=== PATIENT | female | born 1990 | race Caucasian/White ===

== ENCOUNTER 2017-12-10 17:05 | Inpatient (IN) | payer BC, MEDICAID ==
[~2017-12-10] VITALS: Ht 160 cm; Wt 76.7 kg
[2017-12-10] MEDS ORDERED: NS(*) 0.9% 1000 ML BAG 1,000 ML IV ONE ×2 (17:20→19:00)
[2017-12-10] MEDS ORDERED: fentaNYL CITR 100 MCG/2 ML AMP IVP ONE (17:20)
[2017-12-10 17:39] LABS: PLATELET COUNT, AUTOMATED 258 K/uL (150-450)
[2017-12-10] MEDS ORDERED: GENTAMICIN IVPB ONE ×2 (17:40→17:55)
[2017-12-10] MEDS ORDERED: NS 0.9% IVPB ONE ×3 (17:40→19:00)
[2017-12-10] MEDS ORDERED: VANCOMYCIN 1 GM ADDVIAL 1 GM in NS(*) 0.9% 250 ML ADDVAN BAG 250 ML IVPB ONE (17:40)
--- NOTE | 2017-12-10 17:40 | EKG ---
FACILITY: [facility] PATIENT NAME: COLLETTE MENDOZA : [id number] MR: [id number] V: [id number] EXAM DATE: ORDERING PHYSICIAN: CIRILO MARINELLI TECHNOLOGIST: MARLO Wake[place] Reason : Blood Pressure : / mmHG Vent. Rate : 118 BPM Atrial Rate : 118 BPM P-R Int : 160 ms QRS Dur : 080 ms QT Int : 310 ms P-R-T Axes : 064 022 044 degrees QTc Int : 434 ms Sinus tachycardia Nonspecific T wave abnormality Abnormal ECG No previous ECGs available Confirmed by VIJAY LEONARD ([id number]) on 12/11/2017 11:14:57 AM Referred By: Confirmed By:VIJAY LEONARD
--- NOTE | 2017-12-10 17:47 | RADIOLOGY IMAGING REPORT ---
FACILITY: [facility] PATIENT NAME: Jazmín Benjamin : 1990 MR: [id number] V: [id number] EXAM DATE: ORDERING PHYSICIAN: MICHAEL TAYLOR TECHNOLOGIST: Location: [facility] - [place] Patient: Jazmín Benjamin : 1990 Visit/Account:[id number] Date of Sevice: 12/10/2017 EXAMINATION: CT HEAD WITHOUT CONTRAST COMPARISON: None available HISTORY: Headache. This. Fever. PROCEDURE: Noncontrast CT from the vertex through the skull base. One of the following dose optimizat ion techniques was utilized in the performance of this exam: Automated exposure control; adjustment o f the mA and/or kV according to the patient's size; or use of an iterative reconstruction technique. Specific details can be referenced in the facility's radiology CT exam operational policy. FINDINGS: Brain volume: Age-appropriate. Hemorrhage/extra-axial fluid: None. Mass effect/midline shift/edema: None. Ischemia: Brice-white differentiation is preserved. Ventricles and basal cisterns: Within normal limits. Posterior fossa: Negative. Vessels: Negative. Calvarium, skull base, and scalp: Negative. Visualized sinuses and orbits: Within normal limits. IMPRESSION: Negative age-appropriate noncontrast head CT. Report Dictated By: Scott Mata MD at 12/10/2017 5:41 PM Report E-Signed By: Scott Mata MD at 12/10/2017 5:43 PM WSN:[id number]
[2017-12-10] MEDS ORDERED: ACYCLOVIR IVPB SCH ×2 (18:15→21:00)
[2017-12-10] MEDS ORDERED: NS 0.9% IVPB SCH ×2 (18:15→21:00)
[2017-12-10] MEDS ORDERED: VANCOMYCIN IVPB ONE (19:00)
--- NOTE | 2017-12-10 19:33 | ER Report ---
History and Physical Time Seen By MD: 17:23 Hx. of Stated Complaint: EMS CALLED BY FATHER. Pt reports headache and malaise since last night. Father called ems bc patient was lethargic and febrile. Reported high fever. Last tylenol at 1400. HPI/ROS CHIEF COMPLAINT: Headache, fever, neck pain HISTORY OF PRESENT ILLNESS: 27-year-old female patient presents to emergency room with complaint of headache, fever and neck pain. Patient states this started yesterday. Patient states that she did not start having fevers until last night. She states that fevers have persisted throughout the day. Patient states she's having significant amount of pain. She states she has difficulty turning her head. She denies having any nausea, vomiting or diarrhea, she denies having any chest pain. Patient has taken Tylenol for her fever. The last she had was approximately 2:00 this afternoon. Patient states she's having significant photophobia, headache. She has a hard time keeping her eyes open because the light makes her head hurt more. REVIEW OF SYSTEMS: Respiratory: No cough, no dyspnea. Cardiovascular: No chest pain, no palpitations. Gastrointestinal: No vomiting, no abdominal pain. Musculoskeletal: No back pain. Allergies: Coded Allergies: No Known Drug Allergies (Verified , 02/25/08) Home Meds Reported Medications [None] No Conflict Check 02/25/08 Past Medical/Surgical History Patient denies any pertinent medical history. Reviewed Nurses Notes: Yes Constitutional Vital Sign - Last 24 Hours 12/10/17 12/10/17 12/10/17 12/10/17 17:05 17:08 17:11 17:20 Temp 100.4 Pulse ??? 126 ??? Resp 16 B/P (MAP) 131/88 (102) 131/88 Pulse Ox 96 O2 Delivery Room Air 12/10/17 12/10/17 12/10/17 12/10/17 17:24 17:35 17:40 17:50 Pulse 118 135 Resp 0 B/P (MAP) 119/82 (94) 126/86 (99) Pulse Ox 97 95 12/10/17 12/10/17 12/10/17 12/10/17 18:00 18:05 18:20 18:35 Pulse 103 114 113 Resp 9 21 B/P (MAP) 100/69 (79) 106/78 (87) Pulse Ox 94 92 12/10/17 12/10/17 12/10/17 12/10/17 18:40 18:50 19:00 19:05 Pulse 118 122 Resp 24 22 B/P (MAP) 122/80 (94) 119/81 (94) Pulse Ox 94 94 12/10/17 12/10/17 12/10/17 12/10/17 19:20 19:35 19:45 19:50 Pulse 114 ??? 109 Resp 20 18 B/P (MAP) 112/76 (88) 123/93 (103) Pulse Ox 94 95 12/10/17 12/10/17 12/10/17 20:00 20:05 20:20 Pulse 113 112 Resp 21 24 B/P (MAP) 125/97 (106) 119/93 (102) Pulse Ox 95 94 Intake and Output 12/10/17 12/10/17 12/11/17 15:00 23:00 07:00 Intake Total 1100 ml Output Total 100 ml Balance 1000 ml Physical Exam General Appearance: The patient is alert, has no immediate need for airway protection and no current signs of toxicity. Patient is warm to the touch. Eyes: Pupils equal and round no injection. Patient has difficult time keeping her eyes open. Respiratory: Chest is non tender, lungs are clear to auscultation. Cardiac: regular rate and rhythm Gastrointestinal: Abdomen is soft and non tender, no masses, bowel sounds normal. Musculoskeletal: Neck: Patient has tenderness to the left side of her neck, she has worsening pain with movement. Patient had a positive Kernig and Brudzinski sign. Extremities have full range of motion and are non tender. Skin: No rashes or lesions. DIFFERENTIAL DIAGNOSIS: After history and physical exam differential diagnosis was considered for meningitis, viral meningitis, upper respiratory infection, mono, influenza. Medical Decision Making Data Points Result Diagram: 12/10/17 1726 12/10/17 1726 Laboratory Hematology Test 12/10/17 17:26 12/10/17 17:58 12/10/17 18:30 12/10/17 18:47 Red Blood Count 4.98 M/uL (4.17-5.56) Mean Corpuscular Volume 83.4 fL (80.0-96.0) Mean Corpuscular Hemoglobin 28.6 pg (26.0-33.0) Mean Corpuscular Hemoglobin Concent 34.2 g/dL (32.0-36.0) Red Cell Distribution Width 14.3 % (11.5-14.5) Mean Platelet Volume 8.0 fL (7.2-11.1) Neutrophils (%) (Auto) 88.1 % (39.4-72.5) Lymphocytes (%) (Auto) 5.8 % (17.6-49.6) Monocytes (%) (Auto) 5.4 % (4.1-12.4) Eosinophils (%) (Auto) 0.2 % (0.4-6.7) Basophils (%) (Auto) 0.5 % (0.3-1.4) Nucleated RBC Relative Count (auto) 0.0 /100WBC Neutrophils # (Auto) 14.7 K/uL (2.0-7.4) Lymphocytes # (Auto) 1.0 K/uL (1.3-3.6) Monocytes # (Auto) 0.9 K/uL (0.3-1.0) Eosinophils # (Auto) 0.0 K/uL (0.0-0.5) Basophils # (Auto) 0.1 K/uL (0.0-0.1) Nucleated RBC Absolute Count (auto) 0.00 K/uL Sodium Level 138 mmol/L (137-145) Potassium Level 3.7 mmol/L (3.5-5.0) Chloride Level 104 mmol/L (98-107) Carbon Dioxide Level 23 mmol/L (22-31) Blood Urea Nitrogen 9 mg/dl (7-18) Creatinine 0.90 mg/dl (0.52-1.04) Glomerular Filtration Rate Calc > 60.0 Random Glucose 103 mg/dl (75-110) Lactate 1.0 mmol/L (0.7-2.1) Calcium Level 8.7 mg/dl (8.4-10.2) Total Bilirubin 0.6 mg/dl (0.2-1.3) Aspartate Amino Transf (AST/SGOT) 23 U/L (0-35) Alanine Aminotransferase (ALT/SGPT) 20 U/L (0-56) Alkaline Phosphatase 86 U/L (0-126) Total Protein 5.8 g/dl (6.3-8.2) Albumin 3.3 g/dl (3.5-5.0) Monoscreen Negative (NEGATIVE) Influenza Virus Type A (PCR) Negative (NEGATIVE) Influenza Virus Type B (PCR) Negative (NEGATIVE) Haemophilus influenzae B Antigen Negative (NEGATIVE) Neisseria meningitidis A/Y Antigen Negative (NEGATIVE) Neisseria meningitidis C/W135 Ag Negative (NEGATIVE) N. meningitidis B/E.coli K1 Ag Negative (NEGATIVE) Group B Streptococcus Antigen Negative (NEGATIVE) Streptococcus pneumoniae Antigen Negative (NEGATIVE) CSF Appearance Clear (CLEAR) CSF Color Colorless (COLORLESS) CSF WBC 1 /mm3 (0-5) CSF RBC 118 /mm3 CSF Glucose 56 mg/dl CSF Lactate Dehydrogenase 169 U/L CSF Total Protein 29 mg/dl (15-50) Urine Color Straw Urine Clarity Clear Urine pH 8.0 pH (4.8-9.5) Urine Specific Wilkinson 1.006 Urine Protein Negative mg/dL (NEGATIVE) Urine Glucose (UA) Negative mg/dL (NEGATIVE) Urine Ketones 20 mg/dL (NEGATIVE) Urine Blood Negative (NEGATIVE) Urine Nitrite Negative (NEGATIVE) Urine Bilirubin Negative (NEGATIVE) Urine Urobilinogen Negative mg/dL (0.2-1.9) Urine Leukocyte Esterase Negative (NEGATIVE) Urine RBC None /HPF (0-2/HPF) Urine WBC 1 /HPF (0-5/HPF) Urine Squamous Epithelial Cells Few /LPF (NONE-FEW) Urine Bacteria Negative /HPF (NONE-FEW) Urine Mucus None /HPF (NONE-FEW) Chemistry Test 12/10/17 17:26 12/10/17 17:58 12/10/17 18:30 12/10/17 18:47 White Blood Count 16.6 k/uL (4.5-11.0) Red Blood Count 4.98 M/uL (4.17-5.56) Hemoglobin 14.2 g/dL (12.0-16.0) Hematocrit 41.5 % (34.0-47.0) Mean Corpuscular Volume 83.4 fL (80.0-96.0) Mean Corpuscular Hemoglobin 28.6 pg (26.0-33.0) Mean Corpuscular Hemoglobin Concent 34.2 g/dL (32.0-36.0) Red Cell Distribution Width 14.3 % (11.5-14.5) Platelet Count 258 K/uL (150-450) Mean Platelet Volume 8.0 fL (7.2-11.1) Neutrophils (%) (Auto) 88.1 % (39.4-72.5) Lymphocytes (%) (Auto) 5.8 % (17.6-49.6) Monocytes (%) (Auto) 5.4 % (4.1-12.4) Eosinophils (%) (Auto) 0.2 % (0.4-6.7) Basophils (%) (Auto) 0.5 % (0.3-1.4) Nucleated RBC Relative Count (auto) 0.0 /100WBC Neutrophils # (Auto) 14.7 K/uL (2.0-7.4) Lymphocytes # (Auto) 1.0 K/uL (1.3-3.6) Monocytes # (Auto) 0.9 K/uL (0.3-1.0) Eosinophils # (Auto) 0.0 K/uL (0.0-0.5) Basophils # (Auto) 0.1 K/uL (0.0-0.1) Nucleated RBC Absolute Count (auto) 0.00 K/uL Glomerular Filtration Rate Calc > 60.0 Lactate 1.0 mmol/L (0.7-2.1) Calcium Level 8.7 mg/dl (8.4-10.2) Total Bilirubin 0.6 mg/dl (0.2-1.3) Aspartate Amino Transf (AST/SGOT) 23 U/L (0-35) Alanine Aminotransferase (ALT/SGPT) 20 U/L (0-56) Alkaline Phosphatase 86 U/L (0-126) Total Protein 5.8 g/dl (6.3-8.2) Albumin 3.3 g/dl (3.5-5.0) Monoscreen Negative (NEGATIVE) Influenza Virus Type A (PCR) Negative (NEGATIVE) Influenza Virus Type B (PCR) Negative (NEGATIVE) Haemophilus influenzae B Antigen Negative (NEGATIVE) Neisseria meningitidis A/Y Antigen Negative (NEGATIVE) Neisseria meningitidis C/W135 Ag Negative (NEGATIVE) N. meningitidis B/E.coli K1 Ag Negative (NEGATIVE) Group B Streptococcus Antigen Negative (NEGATIVE) Streptococcus pneumoniae Antigen Negative (NEGATIVE) CSF Appearance Clear (CLEAR) CSF Color Colorless (COLORLESS) CSF WBC 1 /mm3 (0-5) CSF RBC 118 /mm3 CSF Glucose 56 mg/dl CSF Lactate Dehydrogenase 169 U/L CSF Total Protein 29 mg/dl (15-50) Urine Color Straw Urine Clarity Clear Urine pH 8.0 pH (4.8-9.5) Urine Specific Wilkinson 1.006 Urine Protein Negative mg/dL (NEGATIVE) Urine Glucose (UA) Negative mg/dL (NEGATIVE) Urine Ketones 20 mg/dL (NEGATIVE) Urine Blood Negative (NEGATIVE) Urine Nitrite Negative (NEGATIVE) Urine Bilirubin Negative (NEGATIVE) Urine Urobilinogen Negative mg/dL (0.2-1.9) Urine Leukocyte Esterase Negative (NEGATIVE) Urine RBC None /HPF (0-2/HPF) Urine WBC 1 /HPF (0-5/HPF) Urine Squamous Epithelial Cells Few /LPF (NONE-FEW) Urine Bacteria Negative /HPF (NONE-FEW) Urine Mucus None /HPF (NONE-FEW) Urinalysis Test 12/10/17 18:47 Urine Color Straw Urine Clarity Clear Urine pH 8.0 pH (4.8-9.5) Urine Specific Wilkinson 1.006 Urine Protein Negative mg/dL (NEGATIVE) Urine Glucose (UA) Negative mg/dL (NEGATIVE) Urine Ketones 20 mg/dL (NEGATIVE) Urine Blood Negative (NEGATIVE) Urine Nitrite Negative (NEGATIVE) Urine Bilirubin Negative (NEGATIVE) Urine Urobilinogen Negative mg/dL (0.2-1.9) Urine Leukocyte Esterase Negative (NEGATIVE) Urine RBC None /HPF (0-2/HPF) Urine WBC 1 /HPF (0-5/HPF) Urine Squamous Epithelial Cells Few /LPF (NONE-FEW) Urine Bacteria Negative /HPF (NONE-FEW) Urine Mucus None /HPF (NONE-FEW) Microbiology Microbiology Date/Time Source Procedure Growth Status 12/10/17 17:58 Cerebrospinal Fluid Gram Stain - Final Resulted 12/10/17 17:58 Cerebrospinal Fluid CSF Culture Pending Resulted EKG/Imaging EKG Interpretation 12 lead EKG: Rhythm: Sinus tachycardia with a ventricular rate of 118 beats for minute [place]: normal QRS: normal ST segments: normal Imaging EXAMINATION: CT HEAD WITHOUT CONTRAST COMPARISON: None available HISTORY: Headache. This. Fever. PROCEDURE: Noncontrast CT from the vertex through the skull base. One of the following dose optimization techniques was utilized in the performance of this exam: Automated exposure control; adjustment of the mA and/or kV according to the patient's size; or use of an iterative reconstruction technique. Specific details can be referenced in the facility's radiology CT exam operational policy. FINDINGS: Brain volume: Age-appropriate. Hemorrhage/extra-axial fluid: None. Mass effect/midline shift/edema: None. Ischemia: Brice-white differentiation is preserved. Ventricles and basal cisterns: Within normal limits. Posterior fossa: Negative. Vessels: Negative. Calvarium, skull base, and scalp: Negative. Visualized sinuses and orbits: Within normal limits. IMPRESSION: Negative age-appropriate noncontrast head CT. Report Dictated By: Scott Mata MD at 12/10/2017 5:41 PM Report E-Signed By: Scott Mata MD at 12/10/2017 5:43 PM ED Course/Re-evaluation ED Course Patient was admitted to examined, history and physical were obtained. Differential diagnoses were considered. On examination lungs are clear, heart was regular, abdomen soft nontender. Patient did have tenderness to the neck. Patient has pain with flexion, extension and turning her head. Patient also has a headache. Patient was febrile at 100.4 here in the emergency room. A CBC, CMP , EKG, lactate, chest x-ray, CT scan of the head and lumbar puncture were done. Lactate was one. CBC showed an elevated white count of 16,000 with a left shift. CMP was unremarkable except for a low albumin and protein. EKG showed a sinus tachycardia. CT scan of the head was done which was negative. Following the CT scan of the head and lumbar puncture was done. Irritable to get proximally 4 cc of fluid out, it was clear although I did have a traumatic tap which resulted in blood in the first vial. A culture and Gram stain was done. A bacterial antigens was done which was negative. Influenza was done which was also negative. Monospot was done which was negative. Patient had 218 red blood cells per high-power field in her CSF. 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 We did go ahead and treat her with vancomycin, gentamicin and acyclovir. I discussed case with Dr. Weems who agreed to accept the patient for admission. He also requested that Rocephin be given. Rocephin was given. A catheter was placed, urinalysis obtained which was also unremarkable. I discussed findings with patient and the family and they verbalized understanding and agreement with plan. Procedure: Lumbar puncture. Indication: Headache. After verbal informed consent from patient explaining the risks including infection, bleeding, and neurologic damage, a lumbar puncture was performed after the patient was prepped and draped in the usual fashion. The back was anesthetized with 1% lidocaine. Approximately 4 cc of clear fluid was obtained. Opening pressure was not obtained. There were no complications. The procedure was performed by myself under the direct supervision of Dr. Benjamin. Decision to Disposition Date: Dec 10, 2017 Decision to Disposition Time: 20:21 Depart Departure Latest Vital Signs Vital Signs Date Time Temp Pulse Resp B/P (MAP) Pulse Ox O2 Delivery O2 Flow Rate FiO2 12/10/17 20:20 112 24 119/93 (102) 94 12/10/17 17:11 100.4 Room Air Impression: Primary Impression: Meningitis Condition: Improved Disposition: Admitted from ER Referrals: [facility] RD[facility] Departure Forms: Medications Reconciliation, Patient Portal Information, ER Transition Record CIRILO MARINELLI Dec 10, 2017 19:33
--- NOTE | 2017-12-10 19:58 | RADIOLOGY IMAGING REPORT ---
FACILITY: [facility] PATIENT NAME: Jazmín Benjamin : 1990 MR: [id number] V: [id number] EXAM DATE: ORDERING PHYSICIAN: CIRILO MARINELLI [place]CHN[place] [facility] [place]azmín Benjamin : 1990 Visit/Account:[id number] Date of Sevice: 12/10/2017 EXAMINATION: Chest 2 Views HISTORY: Fever. COMPARISON: None. FINDINGS: The lungs are clear. No focal consolidation or pleural fluid. No pneumothorax. Normal cardiomedias tinal silhouette, with normal heart size and pulmonary vascularity. Visualized osseous structures ar e unremarkable. IMPRESSION: Negative chest. Report Dictated By: Paul Edwards MD at 12/10/2017 7:54 PM Report E-Signed By: Paul Edwards MD at 12/10/2017 7:54 PM WSN:[id number]
[2017-12-10] MEDS ORDERED: cefTRIAXone(*) 2 GM VIAL 2 GM in NS(*) 0.9% 100 ML ADDVANT BAG 100 ML IVPB ONE (20:10)
[2017-12-10] MEDS ORDERED: DEXAMETHASONE SOD 20MG/5 ML VL IVP ONE (20:55)
[2017-12-10 21:11] VITALS: BP 114/80
--- NOTE | 2017-12-10 21:21 | History & Physical ---
History of Present Illness Chief Complaint Headache, fever, neck pain History of Present Illness Mrs. Benjamin is a 27-year-old female with PMH of Allergic Rhinitis who presented to the emergency room with complaint of headache, fever and neck pain. The headache started yesterday and she developed fever last night that persisted till today. She still c/o headache and neck pain with neck stiffness and photophobia. She denied having any nausea, vomiting or diarrhea or chest pain. She took some Tylenol for her fever. During the ER evaluation she found to have high WBC, fever 100.4F and tachycardia. She also found to have neck stiffness and positive Kernig and Brudzinski signs by the ER. Spinal tap was performed by the ER-MD with >100 RBC , 1 WBC, Protein 28 and Glucose 56., Gram stain is pending. Blood CX and viral tests were sent. Her CT scan of the head was negative. CXR was also negative. She received Rocephin 2gm, Gentamicin, Acyclovir 680mg and Vancomycin 1.75gm IVPB in the ER. I discussed the case with the ER-MD and admitted the patient to the medical floor for further evaluation and management. I discussed the case with her family members and explained the current condition to them and as well to the patient and they understood. The patient mentioned that she recently had cough and L-ear pain and she took Advil for that and pain went away but her headache persisted. Her young girl also had high fever and sore throat recently and she was positive for strept. She is AAOx3 at present and hemodynamically stable with mild sinus tachycardia. History Home Meds Reported Medications [None] No Conflict Check 02/25/08 Allergies: Coded Allergies: No Known Drug Allergies (Verified , 02/25/08) Review of Systems Constitutional: Fever, Chills, No Weight Loss, No Weight Gain Neurological: No Confusion, No Weakness, No Dizziness Eyes: Photophobia ENT: Sinus Congestion, Ear Ache Cardiovascular: No Chest Pain, No Palpitations Respiratory: No Shortness of Breath, No Cough Gastrointestinal: No Nausea, No Vomiting, No Diarrhea, No Constipation, No Abdominal Pain Genitourinary: No Dysuria, No Hematuria Musculoskeletal: No Pain, No Sprain, No Strain Psychiatric: No Depression, No Anxiety Exam Vital Signs Vital Signs Date Time Temp Pulse Resp B/P (MAP) Pulse Ox O2 Delivery O2 Flow Rate FiO2 12/10/17 21:11 100.7 114 20 114/80 (91) 95 Room Air General Appearance: Alert, Awake, No Acute Distress, Afebrile (low grade fever) Neuro: No Gross deficits Eyes: PERRLA (photophobia) ENT: Normal, Moist Mucous Membranes, Tonsils Normal Neck: No Masses, Other (neck stiffness) Cardiovascular: No Edema, Other (sinus tachycardia) Respiratory: No Respiratory Distress, Clear to Auscultation Chest: No Masses GI: Abd Soft and Non-Tender : Normal Musculoskeletal: No Weakness/Pain Extremities: Soft and Non Tender, Warm, Pulses Integumentary: Skin Intact without Lesion / Mass Psych: Alert & Oriented X3, Appropriate Mood & Affect Medical Decision Making Data Points Result Diagram: 12/10/17 17212/10/171725 reviewed pending EKG / Imaging Monitor Interpretation: Sinus Tachycardia Pre-Admit Course ED Medications Rocephin, Gentamicin, Acyclovir and Vancomycin, Fentanyl for pain Medical Record Review: Yes Assessment and Plan Problems: (1) Meningitis Status: Acute Assessment & Plan: Acute Meningitis, Viral vs Bacterial I will admit her to medical floor for further evaluation and management I will check her neuro status q 4h I will start Rocephin 2 gm IV q 12h I will start Vancomycin 1.5gm IV q 12h I will check Vanco trough before 3rd dose I will start Acyclovir 10mg/kg, 680mg IV q 8h I will start Dexamethasone 0.15mg/kg, 10mg IV q 6h for 4 days I will start Zofran for Nausea I will start Protonix for GIP I will place SCD's for DVTP I will get CBC and BMP in am I will follow her Culture results and direct management accordingly. Central Venous Access Medical Necessity for Access: IV Access, Medication Administration Time Spent on Plan of Care: > 30 min Copies to: VIKRAM TERAN DO Venous Thromboembolism VTE Risk Physician Assess for VTE Risk: Yes Patient's VTE Risk: Low VTE Diagnostic Test 2 Days Prior to Admit: No Antithrombotics Is Pt On Any Antithrombotics?: No Exam Sepsis Risk: Possible Severe Sepsis Risk PRASANTH RICHEY MD Dec 10, 2017 21:20
[2017-12-10] MEDS ORDERED: NS(*) 0.9% 1000 ML BAG 1,000 ML IV PRN (21:40)
[2017-12-10] MEDS ORDERED: ONDANSETRON 4 MG/2 ML VIAL IVP PRN (21:40)
[2017-12-10] MEDS ORDERED: ACETAMINOPHEN 325 MG TAB PO PRN (21:40)
[2017-12-10] MEDS ORDERED: NORG1TAB74 PO (21:59)
[2017-12-10] MEDS ORDERED: MORPHINE 2 MG/ML SYR IVP PRN (22:25)
[2017-12-11 00:17] VITALS: BP 109/63
[2017-12-11] MEDS ORDERED: NS(*) 0.9% 250 ML BAG 250 ML ONE (00:51)
[2017-12-11] MEDS ORDERED: NS(*) 0.9% 1000 ML BAG 1,000 ML IV PRN (01:04)
[2017-12-11] MEDS ORDERED: ONDANSETRON 4 MG/2 ML VIAL IVP PRN (01:05)
[2017-12-11 03:31] VITALS: BP 99/64
[2017-12-11] MEDS: ACETAMINOPHEN 325 MG TAB PO PRN ×2 (03:43→12:44)
[2017-12-11] MEDS ORDERED: DEXAMETHASONE SOD(*) 10MG/ML 10 MG in NS(*) 0.9% 50 ML BAG 50 ML IVPB SCH ×4 (04:00→10:00)
[2017-12-11] MEDS ORDERED: ACYCLOVIR IVPB SCH (05:00)
[2017-12-11] MEDS ORDERED: NS 0.9% IVPB SCH (05:00)
[2017-12-11 06:28] LABS: PLATELET COUNT, AUTOMATED 248 K/uL (150-450)
[2017-12-11] MEDS ORDERED: [UNRECOGNIZED DRUG - OTHER] IVPB SCH (07:00)
[2017-12-11] MEDS ORDERED: VANCOMYCIN IVPB SCH (07:00)
[2017-12-11] MEDS ORDERED: VANCOMYCIN(*) 1 GM VIAL 1 GM, VANCOMYCIN (*) 0.5 GM VIAL 0.5 GM in NS(*) 0.9% 250 ML BA... IVPB SCH (07:00)
[2017-12-11] MEDS ORDERED: D5W IVPB SCH ×2 (08:00)
[2017-12-11] MEDS ORDERED: CEFTRIAXONE IVPB SCH ×2 (08:00)
[2017-12-11] MEDS: cefTRIAXone(*) 2 GM VIAL 2 GM in NS(*) 0.9% 100 ML ADDVANT BAG 100 ML IVPB SCH ×2 (08:43→19:25)
[2017-12-11 08:45] VITALS: BP 106/68
[2017-12-11] MEDS ORDERED: HYPROMELLOSE 0.4% LUB 15ML BTL OU PRN (09:00)
[2017-12-11] MEDS ORDERED: PANTOPRAZOLE SOD 40 MG TABEC PO SCH (09:00)
[2017-12-11] MEDS: PANTOPRAZOLE SOD 40 MG TABEC PO SCH (09:30)
--- NOTE | 2017-12-11 10:14 | Hospitalist Progress Note ---
Subjective Progress Notes Subjective Overall feeling better. Still having neck pain and headache. Physical Exam Vital Signs Date Time Temp Pulse Resp B/P (MAP) Pulse Ox O2 Delivery O2 Flow Rate FiO2 12/11/17 08:45 98.1 91 16 106/68 (81) 93 Blow-by General Appearance: Alert, Awake, No Acute Distress ENT: Other (Scabbed 1cm lesion above chin and about 1cm below lip near midline on left. ) Neck: Other (Still with pain with neck flexion on left side of neck. Able to straighten the leg when hip flexed at 90 degrees) Result Diagram: 12/11/17 0547 12/10/17 0756 Monitor Interpretation: Sinus Tachycardia Assessment and Plan Problems: (1) Meningitis Status: Acute Assessment & Plan: She presented with 24 hours of headache, fever, neck pain and malaise. No bacteria on gram stain, antigen testing negative, 1 wbc in CSF , protein normal in CSF, and glucose is a bit low (low ratio of CSF glucose/ serum glucose). Likely, a viral meningitis. She developed a "cold sore" about a week ago below her bottom lip. She has had before, but this one is really severe for her. Continue vancomycin, ceftriaxone and dexamethasone for now until the CSF cultures are reported. Continue acyclovir. HSV PCR pending. The patient denies any tick exposures, but has had mosquito bites.West Nile testing has been ordered. Central Venous Access Medical Necessity for Access: IV Access, Medication Administration Exam Sepsis Risk: Sepsis Risk VIJAY LEONARD MD Dec 11, 2017 10:14
[2017-12-11 10:56] VITALS: BP 108/71
[2017-12-11] MEDS: NS 0.9% IVPB SCH ×2 (12:32→22:11)
[2017-12-11] MEDS: ACYCLOVIR IVPB SCH ×2 (12:32→22:11)
[2017-12-11 13:37] VITALS: Ht 160 cm; Wt 76.7 kg
[2017-12-11] MEDS: DEXAMETHASONE SOD(*) 10MG/ML 10 MG in NS(*) 0.9% 50 ML BAG 50 ML IVPB SCH ×2 (16:26→23:39)
[2017-12-11 19:21] VITALS: BP 118/79
[2017-12-11] MEDS: VANCOMYCIN(*) 1 GM VIAL 2 GM in NS(*) 0.9% 250 ML BAG 250 ML IVPB SCH (20:08)
[2017-12-12 04:03] VITALS: BP 96/58
[2017-12-12] MEDS: DEXAMETHASONE SOD(*) 10MG/ML 10 MG in NS(*) 0.9% 50 ML BAG 50 ML IVPB SCH (04:04)
[2017-12-12] MEDS: NS 0.9% IVPB SCH ×3 (04:35→21:00)
[2017-12-12] MEDS: ACYCLOVIR IVPB SCH ×3 (04:35→21:00)
[2017-12-12] MEDS: VANCOMYCIN(*) 1 GM VIAL 2 GM in NS(*) 0.9% 250 ML BAG 250 ML IVPB SCH (06:22)
[2017-12-12 07:38] LABS: PLATELET COUNT, AUTOMATED 272 K/uL (150-450)
[2017-12-12 07:59] VITALS: BP 116/79
[2017-12-12] MEDS: PANTOPRAZOLE SOD 40 MG TABEC PO SCH (08:33)
[2017-12-12] MEDS: cefTRIAXone(*) 2 GM VIAL 2 GM in NS(*) 0.9% 100 ML ADDVANT BAG 100 ML IVPB SCH ×2 (08:33→19:58)
[2017-12-12 12:03] VITALS: BP 127/78
[2017-12-12] MEDS: DEXAMETHASONE SOD 4 MG/ML VIAL IVP SCH ×2 (12:26→19:58)
[2017-12-12 14:49] VITALS: BP 117/77
[2017-12-12 19:30] VITALS: BP 126/89
--- NOTE | 2017-12-12 19:54 | Hospitalist Progress Note ---
Subjective Progress Notes Subjective 12/10: Mrs. Benjamin is a 27-year-old female with PMH of Allergic Rhinitis who presented to the emergency room with complaint of headache, fever and neck pain. The headache started yesterday and she developed fever last night that persisted till today. She still c/o headache and neck pain with neck stiffness and photophobia. She denied having any nausea, vomiting or diarrhea or chest pain. She took some Tylenol for her fever. During the ER evaluation she found to have high WBC, fever 100.4F and tachycardia. She also found to have neck stiffness and positive Kernig and Brudzinski signs by the ER. Spinal tap was performed by the ER-MD with >100 RBC , 1 WBC, Protein 28 and Glucose 56., Gram stain is pending. Blood CX and viral tests were sent. Her CT scan of the head was negative. CXR was also negative. She received Rocephin 2gm, Gentamicin, Acyclovir 680mg and Vancomycin 1.75gm IVPB in the ER. I discussed the case with the ER-MD and admitted the patient to the medical floor for further evaluation and management. I discussed the case with her family members and explained the current condition to them and as well to the patient and they understood. The patient mentioned that she recently had cough and L-ear pain and she took Advil for that and pain went away but her headache persisted. Her young girl also had high fever and sore throat recently and she was positive for strept. She is AAOx3 at present and hemodynamically stable with mild sinus tachycardia. 12/12: Today patient is doing well without any significant complaint. She is afebrile and hemodynamically stable. Her CSF bacterial studies are negative, Influenza, [place] are negative, Herpes is still pending. Her BCX are negative. She c/o mild L -lateral aspect of knee. Patient Complains of: Neurological: No: Confusion, Weakness, Dizziness Cardiovascular: No: Chest Pain, Palpitations Respiratory: No: Cough, Congestion, Shortness of Breath Gastrointestinal: No Nausea, No Vomiting Genitourinary: No Dysuria, No Hematuria Musculoskeletal: No: Pain, Sprain, Strain Physical Exam Vital Signs Date Time Temp Pulse Resp B/P (MAP) Pulse Ox O2 Delivery O2 Flow Rate FiO2 12/12/17 19:30 98.7 77 16 126/89 (101) 94 Room Air Intake and Output 12/13/17 07:00 Intake Total 823 ml Balance 823 ml Intake Oral 342 ml IV Total 481 ml # Voids 1 General Appearance: Alert, Awake, No Acute Distress, Afebrile Neuro: No Gross deficits Eyes: PERRLA ENT: Normal Neck: No Masses Cardiovascular: No Edema, Other (sinus tachycardia) Respiratory: No Respiratory Distress GI: Soft and Non-Tender Musculoskeletal: No Weakness/Pain Extremities: Soft and Non Tender, Pulses, Other (L-knee tenderness) Integumentary: Other (perioral skin lesions) Psych: Alert & Oriented X3, Appropriate Mood & Affect Result Diagram: 12/12/17 0731 12/12/17 07 Monitor Interpretation: Sinus Tachycardia Assessment and Plan Problems: (1) Meningitis Status: Acute Assessment & Plan: 12/11: She presented with 24 hours of headache, fever, neck pain and malaise. No bacteria on gram stain, antigen testing negative, 1 wbc in CSF, protein normal in CSF, and glucose is a bit low (low ratio of CSF glucose/serum glucose). Likely, a viral meningitis. She developed a "cold sore" about a week ago below her bottom lip. She has had before, but this one is really severe for her. Continue vancomycin, ceftriaxone and dexamethasone for now until the CSF cultures are reported. Continue acyclovir. HSV PCR pending. The patient denies any tick exposures, but has had mosquito bites.West Nile testing has been ordered. 12/12: I will stop her Vancomycin, I will decrease her Dexamethasone to 4mg IV q8h I will continue her Acyclovir and Rocephin today. I will get BMP and CBC in am I will check her Herpes result Central Venous Access Medical Necessity for Access: IV Access, Medication Administration Time Spent on Plan of Care: < 30 min Exam Sepsis Risk: Sepsis Risk PRASANTH RICHEY MD Dec 12, 2017 19:54
[2017-12-13 04:18] VITALS: BP 125/84
[2017-12-13] MEDS: DEXAMETHASONE SOD 4 MG/ML VIAL IVP SCH ×2 (04:19→12:23)
[2017-12-13] MEDS: NS 0.9% IVPB SCH ×3 (04:20→20:52)
[2017-12-13] MEDS: ACYCLOVIR IVPB SCH ×3 (04:20→20:52)
[2017-12-13 06:06] LABS: PLATELET COUNT, AUTOMATED 267 K/uL (150-450)
[2017-12-13 07:43] VITALS: BP 128/84
[2017-12-13] MEDS: cefTRIAXone(*) 2 GM VIAL 2 GM in NS(*) 0.9% 100 ML ADDVANT BAG 100 ML IVPB SCH ×2 (07:45→19:42)
[2017-12-13] MEDS: PANTOPRAZOLE SOD 40 MG TABEC PO SCH (09:21)
--- NOTE | 2017-12-13 14:16 | Hospitalist Progress Note ---
Subjective Progress Notes Subjective Mrs. Benjamin is a 27-year-old female with PMH of Allergic Rhinitis who presented to the emergency room with complaint of headache, fever and neck pain. The headache started yesterday and she developed fever last night that persisted till today. She still c/o headache and neck pain with neck stiffness and photophobia. She denied having any nausea, vomiting or diarrhea or chest pain. She took some Tylenol for her fever. During the ER evaluation she found to have high WBC, fever 100.4F and tachycardia. She also found to have neck stiffness and positive Kernig and Brudzinski signs by the ER. Spinal tap was performed by the ER-MD with >100 RBC , 1 WBC, Protein 28 and Glucose 56., Gram stain is pending. Blood CX and viral tests were sent. Her CT scan of the head was negative. CXR was also negative. She received Rocephin 2gm, Gentamicin, Acyclovir 680mg and Vancomycin 1.75gm IVPB in the ER. I discussed the case with the ER-MD and admitted the patient to the medical floor for further evaluation and management. I discussed the case with her family members and explained the current condition to them and as well to the patient and they understood. The patient mentioned that she recently had cough and L-ear pain and she took Advil for that and pain went away but her headache persisted. Her young girl also had high fever and sore throat recently and she was positive for strept. She is AAOx3 at present and hemodynamically stable with mild sinus tachycardia. 12/12: Today patient is doing well without any significant complaint. She is afebrile and hemodynamically stable. Her CSF bacterial studies are negative, Influenza, [place] are negative, Herpes is still pending. Her BCX are negative. She c/o mild L -lateral aspect of knee. 12/13: The patient is doing better day by day. She is afebrile and hemodynamically stable without any complaint. Her headache and neck pain has improved. Her Herpes test is still pending Patient Complains of: Neurological: No: Confusion, Weakness, Dizziness Cardiovascular: No: Chest Pain, Palpitations Respiratory: No: Cough, Congestion, Shortness of Breath Gastrointestinal: No Nausea, No Vomiting Genitourinary: No Dysuria, No Hematuria Musculoskeletal: No: Pain, Sprain Physical Exam Vital Signs Date Time Temp Pulse Resp B/P (MAP) Pulse Ox O2 Delivery O2 Flow Rate FiO2 12/13/17 07:43 98.6 61 14 128/84 (99) 94 Room Air Intake and Output 12/14/17 07:00 Intake Total 690 ml Balance 690 ml Intake Oral 440 ml IV Total 250 ml # Voids 1 General Appearance: Alert, Awake, No Acute Distress, Afebrile Neuro: No Gross deficits Eyes: PERRLA ENT: Normal Neck: No Masses Cardiovascular: Normal Rhythm & Peripheral Pulses, No Edema Respiratory: No Respiratory Distress GI: Soft and Non-Tender Extremities: Soft and Non Tender, Warm Psych: Alert & Oriented X3, Appropriate Mood & Affect Result Diagram: 12/13/17 0545 12/13/17 0545 Monitor Interpretation: Sinus Tachycardia Assessment and Plan Problems: (1) Meningitis Status: Acute Assessment & Plan: 12/11: She presented with 24 hours of headache, fever, neck pain and malaise. No bacteria on gram stain, antigen testing negative, 1 wbc in CSF, protein normal in CSF, and glucose is a bit low (low ratio of CSF glucose/serum glucose). Likely, a viral meningitis. She developed a "cold sore" about a week ago below her bottom lip. She has had before, but this one is really severe for her. Continue vancomycin, ceftriaxone and dexamethasone for now until the CSF cultures are reported. Continue acyclovir. HSV PCR pending. The patient denies any tick exposures, but has had mosquito bites.West Nile testing has been ordered. 12/12: I will stop her Vancomycin, I will decrease her Dexamethasone to 4mg IV q8h I will continue her Acyclovir and Rocephin today. I will get BMP and CBC in am I will check her Herpes result 12/13: I will stop her Dexamethasone today I will stop her Rocephin if her Herpes test come back positive. Awaiting result I will continue Acyclovir Possible d/c in amrb Central Venous Access Medical Necessity for Access: IV Access, Medication Administration Time Spent on Plan of Care: < 30 min Exam Sepsis Risk: No Definite Risk PRASANTH RICHEY MD Dec 13, 2017 14:16
[2017-12-13 16:48] VITALS: BP 116/76
[2017-12-13 19:55] VITALS: BP 128/89
[2017-12-14] VITALS: BP 131/90
[2017-12-14 03:44] VITALS: BP 120/85
[2017-12-14] MEDS: ACYCLOVIR IVPB SCH (05:27)
[2017-12-14] MEDS: NS 0.9% IVPB SCH (05:27)
[2017-12-14 07:32] VITALS: BP 124/82
[2017-12-14] MEDS: cefTRIAXone(*) 2 GM VIAL 2 GM in NS(*) 0.9% 100 ML ADDVANT BAG 100 ML IVPB SCH (08:16)
[2017-12-14] MEDS: PANTOPRAZOLE SOD 40 MG TABEC PO SCH (08:16)
[2017-12-14] MEDS ORDERED: ACYC800T99 PO (10:58)
--- NOTE | 2017-12-14 11:01 | Hospitalist Depart ---
Discharge Summary Reason for Hosp/Final Diag: (1) Meningitis Status: Acute Hospital Course & Plan: She presented with 24 hours of headache, fever, neck pain and malaise. A spinal tap was performed in the emergency department. Her gram stain and cultures were negative. She was started on empiric treatment with acyclovir and ceftriaxone. Testing for HSV is still pending. She will discharge to complete a course of oral acyclovir. Departure Latest Vital Signs Vital Signs 12/14/17 12/14/17 07:32 07:34 Temp 98.3 Pulse 62 Resp 14 B/P (MAP) 124/82 (96) Pulse Ox 95 O2 Delivery Room Air Weight (Pounds): 169 Result Diagram: 12/13/17 0545 12/13/17 0545 Condition: Improved Discharge: Home, Self Care Discharge Instructions Home Meds Active Scripts Acyclovir (ACYCLOVIR) 800 Mg Tablet, 800 MG PO 5XD, #35 TAB Prov:EVER FRANCIS DO 12/14/17 Reported Medications Norgestimate-Ethinyl Estradiol (SPRINTEC) 1 Each Tablet, 1 EACH PO 28 days 12/10/17 Discontinued Reported Medications [None] No Conflict Check 02/25/08 Diet: Regular Activity: As Tolerated Venous Thromboembolism Antithrombotics Is Pt On Any Antithrombotics?: No EVER FRANCIS DO Dec 14, 2017 11:01
== END 2017-12-14 11:33 | disposition home or self-care (01) | DRG 99 ==
LOC: ER 17:05 → MED 20:32
PROVIDERS: ADMIT Specialist; ATTEND Specialist
PROC: 009U3ZX Drainage of Spinal Canal, Percutaneous Approach, Diagnostic (ICD-10-PCS; principal; 2017-12-10)
DX: G03.9 Meningitis, unspecified (principal); B00.1 Herpesviral vesicular dermatitis
CPT/HCPCS: 36415; 62270; 70450; 71046; 80202; 81001; 81025; 82040; 82247; 82310; 82374; 82435; 82565; 82945; 82947; 83605; 83615; 84075; 84132; 84155; 84157; 84295; 84450; 84460; 84520; 85025; 86308; 87040; 87070; 87205; 87502; 87529; 87899; 89050; 93005; C1758; J0133; J0696; J1100; J1580; J3010; J3370; J7030; J7050

== ENCOUNTER → 2017-12-10 | Outpatient (CLI) | payer BC ==
[~2017-12-10] MED LIST: ACYC800T99 PO; NORG1TAB74 PO
[2017-12-11 13:37] VITALS: BMI 29.9
== END ==
LOC: AMB 16:25
PROVIDERS: ATTEND Nurse Practitioner
DX: R50.9 Fever, unspecified (principal); R53.1 Weakness
CPT/HCPCS: A0425; A0427

== ENCOUNTER 2018-11-27 19:30 | Observation (INO) | payer BC ==
[2017-12-11 13:37] VITALS: Ht 157.5 cm; Wt 67.1 kg
[~2018-11-27] VITALS: Ht 157.5 cm; Wt 67.1 kg
--- NOTE | 2018-11-27 19:37 | ER Report ---
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 She works nights. He states she spiked a fever shortly thereafter to 104.0 at home. Her history is significant for viral meningitis in November 2017. She was admitted here for one week. During her previous episode. She had some fever blisters on her chin. She is beginning to develop some fever blisters on her chin at this time. Patient notes a lot of pressure in her occipital region and her lower back. Patient denies sore throat, rhinitis, ear pain, cough, dysuria. Patient notes photophobia is wearing sunglasses. She has a stiff neck. She is unable to put her chin down to her chest. REVIEW OF SYSTEMS: Respiratory: No cough, no dyspnea. Cardiovascular: No chest pain, no palpitations. Gastrointestinal: No vomiting, no abdominal pain. Musculoskeletal: No back pain. Allergies: Coded Allergies: No Known Drug Allergies (Verified , 11/27/18) Home Meds Active Scripts Sumatriptan Succinate (SUMATRIPTAN SUCCINATE) 50 Mg Tablet, 50 MG PO ONCE PRN for HEADACHE, #5 TAB Prov:EVER FRANCIS DO 11/28/18 Discontinued Reported Medications Norgestimate-Ethinyl Estradiol (SPRINTEC) 1 Each Tablet, 1 EACH PO 28 days 12/10/17 Discontinued Scripts Acyclovir (ACYCLOVIR) 800 Mg Tablet, 800 MG PO 5XD, #35 TAB Prov:EVER FRANCIS DO 12/14/17 Reviewed Nurses Notes: Yes Old Medical Records Reviewed: Yes Hx Smoking: No Hx Alcohol Use: Yes Constitutional Vital Sign - Last 24 Hours 11/27/18 11/27/18 11/27/18 11/27/18 19:36 19:42 19:45 20:00 Temp 98.8 Pulse 93 79 73 Resp 22 B/P (MAP) 112/57 112/57 (75) 83/60 (68) Pulse Ox 97 97 95 O2 Delivery Room Air 11/27/18 11/27/18 11/27/18 11/27/18 20:15 20:20 20:30 20:45 Pulse 76 70 80 B/P (MAP) 97/60 (72) 87/60 (69) 96/57 (70) Pulse Ox 96 94 90 11/27/18 11/27/18 11/27/18 11/27/18 21:18 21:20 21:30 21:35 Pulse 81 85 B/P (MAP) 95/56 (69) 100/56 (71) Pulse Ox 93 91 11/27/18 11/27/18 11/27/18 11/27/18 21:45 21:50 22:00 22:05 Pulse 74 78 B/P (MAP) 94/54 (67) 92/62 (72) Pulse Ox 94 93 11/27/18 11/27/18 11/27/18 11/27/18 22:15 22:20 22:30 22:35 Pulse 81 96 B/P (MAP) 92/59 (70) 98/61 (73) Pulse Ox 93 97 11/27/18 11/27/18 11/27/18 11/27/18 22:45 22:45 23:00 23:15 Pulse 98 73 75 B/P (MAP) 95/67 (76) 95/67 (76) 90/58 (69) 122/87 (99) Pulse Ox 99 98 98 11/27/18 11/27/18 11/28/18 11/28/18 23:30 23:45 00:00 00:15 Pulse 68 70 65 67 B/P (MAP) 107/82 (90) 119/90 (100) 117/75 (89) 109/75 (86) Pulse Ox 98 99 98 95 Physical Exam General Appearance: The patient is alert, has no immediate need for airway protection and no current signs of toxicity. Vital signs stable, afebrile HEENT: Pupils equal and round no injection. + Photophobia, TMs normal, oropharynx without redness or exudate, there is some erythema on her chin Respiratory: Chest is non tender, lungs are clear to auscultation. No wheezing or rails Cardiac: regular rate and rhythm, no murmur Gastrointestinal: Abdomen is soft and non tender, no masses, bowel sounds normal. Musculoskeletal: Neck: Neck is supple and non tender.+ Meningismus Extremities have full range of motion and are non tender. Skin: No rashes or lesions. Neuro: Alert and oriented 3, cranial nerves II through XII intact motor 5/5 all groups, sensory intact to light touch 4 DIFFERENTIAL DIAGNOSIS: After history and physical exam differential diagnosis was considered for adult fever including but not limited to viral syndromes including influenza, urinary tract infection, pneumonia and sepsis. Additionally,headache including but not limited to subarachnoid hemorrhage, migraine headache, tension headache and infectious causes such as meningitis, pharyngitis and sinusitis. Medical Decision Making Data Points Result Diagram: 11/28/18 0525 11/27/18 1942 Laboratory Hematology Test 11/27/18 19:42 11/27/18 21:17 11/27/18 23:01 11/28/18 00:00 Erythrocyte Sedimentation Rate 10 mm/HOUR (0-20) Sodium Level 138 mmol/L (137-145) Potassium Level 3.4 mmol/L (3.5-5.0) Chloride Level 107 mmol/L (98-107) Carbon Dioxide Level 19 mmol/L (22-31) Blood Urea Nitrogen 12 mg/dl (7-18) Creatinine 0.90 mg/dl (0.52-1.04) Glomerular Filtration Rate Calc > 60.0 Random Glucose 96 mg/dl (75-110) Lactate 1.9 mmol/L (0.7-2.1) Calcium Level 9.6 mg/dl (8.4-10.2) Total Bilirubin 1.0 mg/dl (0.2-1.3) Aspartate Amino Transf (AST/SGOT) 20 U/L (0-35) Alanine Aminotransferase (ALT/SGPT) 16 U/L (0-56) Alkaline Phosphatase 111 U/L (0-126) C-Reactive Protein 3.0 mg/dl (<1.0) Total Protein 7.3 g/dl (6.3-8.2) Albumin 4.6 g/dl (3.5-5.0) Human Chorionic Gonadotropin, Qual Negative (NEGATIVE) Influenza Virus Type A (PCR) Negative (NEGATIVE) Influenza Virus Type B (PCR) Negative (NEGATIVE) Urine Color Yellow Urine Clarity Clear Urine pH 6.0 pH (4.8-9.5) Urine Specific [place] 1.006 Urine Protein Negative mg/dL (NEGATIVE) Urine Glucose (UA) Negative mg/dL (NEGATIVE) Urine Ketones Trace mg/dL (NEGATIVE) Urine Blood Moderate (NEGATIVE) Urine Nitrite Negative (NEGATIVE) Urine Bilirubin Negative (NEGATIVE) Urine Urobilinogen Negative mg/dL (0.2-1.9) Urine Leukocyte Esterase Moderate (NEGATIVE) Urine RBC 1 /HPF (0-2/HPF) Urine WBC 34 /HPF (0-5/HPF) Urine Squamous Epithelial Cells Many /LPF (</=FEW) Urine Bacteria Many /HPF (NONE-FEW) Urine Hyaline Casts Few /LPF (NONE-FEW) Urine Mucus None /HPF (NONE-FEW) CSF WBC 10 /mm3 (0-5) CSF RBC 414 /mm3 CSF Glucose 49 mg/dl CSF Total Protein 50 mg/dl (15-50) Herpes Simplex Virus Source Csf Herpes Simplex Virus DNA (PCR) Not detected Chemistry Test 11/27/18 19:42 11/27/18 21:17 11/27/18 23:01 11/28/18 00:00 Erythrocyte Sedimentation Rate 10 mm/HOUR (0-20) Glomerular Filtration Rate Calc > 60.0 Lactate 1.9 mmol/L (0.7-2.1) Calcium Level 9.6 mg/dl (8.4-10.2) Total Bilirubin 1.0 mg/dl (0.2-1.3) Aspartate Amino Transf (AST/SGOT) 20 U/L (0-35) Alanine Aminotransferase (ALT/SGPT) 16 U/L (0-56) Alkaline Phosphatase 111 U/L (0-126) C-Reactive Protein 3.0 mg/dl (<1.0) Total Protein 7.3 g/dl (6.3-8.2) Albumin 4.6 g/dl (3.5-5.0) Human Chorionic Gonadotropin, Qual Negative (NEGATIVE) Influenza Virus Type A (PCR) Negative (NEGATIVE) Influenza Virus Type B (PCR) Negative (NEGATIVE) Urine Color Yellow Urine Clarity Clear Urine pH 6.0 pH (4.8-9.5) Urine Specific [place] 1.006 Urine Protein Negative mg/dL (NEGATIVE) Urine Glucose (UA) Negative mg/dL (NEGATIVE) Urine Ketones Trace mg/dL (NEGATIVE) Urine Blood Moderate (NEGATIVE) Urine Nitrite Negative (NEGATIVE) Urine Bilirubin Negative (NEGATIVE) Urine Urobilinogen Negative mg/dL (0.2-1.9) Urine Leukocyte Esterase Moderate (NEGATIVE) Urine RBC 1 /HPF (0-2/HPF) Urine WBC 34 /HPF (0-5/HPF) Urine Squamous Epithelial Cells Many /LPF (</=FEW) Urine Bacteria Many /HPF (NONE-FEW) Urine Hyaline Casts Few /LPF (NONE-FEW) Urine Mucus None /HPF (NONE-FEW) CSF WBC 10 /mm3 (0-5) CSF RBC 414 /mm3 CSF Glucose 49 mg/dl CSF Total Protein 50 mg/dl (15-50) Herpes Simplex Virus Source Csf Herpes Simplex Virus DNA (PCR) Not detected Urinalysis Test 11/27/18 21:17 Urine Color Yellow Urine Clarity Clear Urine pH 6.0 pH (4.8-9.5) Urine Specific [place] 1.006 Urine Protein Negative mg/dL (NEGATIVE) Urine Glucose (UA) Negative mg/dL (NEGATIVE) Urine Ketones Trace mg/dL (NEGATIVE) Urine Blood Moderate (NEGATIVE) Urine Nitrite Negative (NEGATIVE) Urine Bilirubin Negative (NEGATIVE) Urine Urobilinogen Negative mg/dL (0.2-1.9) Urine Leukocyte Esterase Moderate (NEGATIVE) Urine RBC 1 /HPF (0-2/HPF) Urine WBC 34 /HPF (0-5/HPF) Urine Squamous Epithelial Cells Many /LPF (</=FEW) Urine Bacteria Many /HPF (NONE-FEW) Urine Hyaline Casts Few /LPF (NONE-FEW) Urine Mucus None /HPF (NONE-FEW) Microbiology Microbiology Date/Time Source Procedure Growth Status 11/27/18 23:14 Blood Peripheral Draw Blood Culture - Preliminary NO GROWTH AFTER 3 DAYS, REINCUBATED Resulted 11/27/18 19:42 Blood Peripheral Draw Blood Culture - Preliminary NO GROWTH AFTER 3 DAYS, REINCUBATED Resulted 11/27/18 23:01 Cerebrospinal Fluid Gram Stain - Final Resulted 11/27/18 23:01 Cerebrospinal Fluid CSF Culture - Preliminary NO GROWTH AFTER 2 DAYS, REINCUBATED Resulted EKG/Imaging Imaging X-ray: Two-view chest x-ray was obtained. I viewed the images myself on the PACS system. My interpretation of the images is: No infiltrate, no effusion, normal mediastinum., Comparison to previous chest x-ray dated 12/10/17, no significant change. The radiologist interpretation had no clinically s ignificant variation from this interpretation. Results: CT scan of the head without contrast was obtained. The results of the study are no acute findings. The study was read by the radiologist. I viewed the images myself on the PACS system. ED Course/Re-evaluation Clinical Indication for ER IV: Hydration, IV Access ED Course Patient was admitted to an examination room. H&P was done. The dental diagnoses was considered. Patient with classic symptoms of meningismus and photophobia. She has a history of viral meningitis from a year ago. She was admitted here for approximately 5 days. She has recurrence of her classic symptoms. She did have a fever to 104 at home. Patient was treated with IV fluids, Zofran, Dilaudid. Diagnostic studies show an elevated white blood cell count of 14,000. A lumbar puncture was performed as noted below. Showing WBCs in her spinal fluid consistent with meningitis. 11/27/2018 11:08:26 pm Procedure: Lumbar puncture. Indication: Headache. After verbal informed consent from patient explaining the risks including infection, bleeding, and neurologic damage, a lumbar puncture was performed after the patient was prepped and draped in the usual fashion. The back was anesthetized with 1% lidocaine. Approximately 8 cc of bloody fluid was obtained. Opening pressure was not obtained. There were no complications. The procedure was performed by myself. 11/28/2018 12:07:55 am case discussed with Dr. Daquan Rolle who accepts the patient for admission for treatment of meningitis. Decision to Disposition Date: November 27, 2018 Decision to Disposition Time: 23:57 Depart Departure Latest Vital Signs Vital Signs Date Time Temp Pulse Resp B/P (MAP) Pulse Ox O2 Delivery O2 Flow Rate FiO2 11/28/18 00:15 67 109/75 (86) 95 11/27/18 19:36 98.8 22 Room Air Core Temperature (Celsius): 37.8 Impression: Primary Impression: Meningitis Condition: Improved Disposition: Admitted from ER New Scripts Sumatriptan Succinate (SUMATRIPTAN SUCCINATE) 50 Mg Tablet 50 MG PO ONCE PRN for HEADACHE, #5 TAB Prov: EVER FRANCIS DO 11/28/18 FANNY BOSS DO November 27, 2018 19:37
[2018-11-27] MEDS ORDERED: NS(*) 0.9% 1000 ML BAG 1,000 ML IV ONE (19:45)
[2018-11-27] MEDS ORDERED: ONDANSETRON 4 MG/2 ML VIAL IVP ONE (19:45)
[2018-11-27] MEDS ORDERED: HYDROMORPHONE HCL 1 MG/ML SYRINGE IVP ONE (19:45)
[2018-11-27 20:13] LABS: PLATELET COUNT, AUTOMATED 287 K/uL (150-450)
--- NOTE | 2018-11-27 21:20 | RADIOLOGY IMAGING REPORT ---
FACILITY: [facility] PATIENT NAME: Jazmín Benjamin : 1990 MR: [id number] V: [id number] EXAM DATE: ORDERING PHYSICIAN: FANNY BOSS TECHNOLOGIST: Location: [facility] Patient: Jazmín Benjamin : 1990 Visit/Account:[id number] Date of Sevice: 11/27/2018 Examination: CHEST PA LAT Comparison: 07/12/2017. History: Fever and headache for one day. Findings: No consolidation, nodule, or peribronchial inflammation. No pneumothorax, edema, or effusi on. Osseous structures are intact. IMPRESSION: Negative chest. Report Dictated By: Scott Mata MD at 11/27/2018 9:12 PM Report E-Signed By: Scott Mata MD at 11/27/2018 9:15 PM [id number]
--- NOTE | 2018-11-27 21:24 | RADIOLOGY IMAGING REPORT ---
FACILITY: [facility] PATIENT NAME: Jazmín Benjamin : 1990 MR: [id number] V: [id number] EXAM DATE: ORDERING PHYSICIAN: FANNY BOSS TECHNOLOGIST: Location: [facility] [place] Patient: Jazmín Benjamin : 1990 Visit/Account:[id number] Date of Sevice: 11/27/2018 CT BRAIN NO CONTRAST HISTORY: Headache. Fever. COMPARISON STUDIES: CT brain 12/10/2017 TECHNIQUE: Contiguous axial images were obtained from the skull base to the vertex. One of the Press-sense dose optimization techniques was utilized in the performance of this exam: automated exposure co ntrol; adjustment of the mA and/or kv according to patient size; or use of iterative reconstruction t echnique. Specific details can be referenced in the facility's radiology CT exam operational policy. FINDINGS: Hemorrhage: Negative Ventricles / sulci / fissures: Negative Masses / midline shift: Negative White matter: Negative Brice-white differentiation: Negative Vessels: Negative Extra-axial spaces: Negative Bones/skull base: Negative Visualized mastoid air cells / paranasal sinuses: Negative Scalp and soft tissues: Negative. Other findings: None significant IMPRESSION: 1. No acute intracranial abnormality. No change. Report Dictated By: Lisandro Hager MD at 11/27/2018 9:19 PM Report E-Signed By: Lisandro Hager MD at 11/27/2018 9:21 PM WSN:[id number]
[2018-11-27] MEDS ORDERED: fentaNYL CITR 100 MCG/2 ML AMP IVP ONE (22:20)
[2018-11-27] MEDS ORDERED: cefTRIAXone 1 GM VIAL IVP ONE (23:20)
[2018-11-27] MEDS ORDERED: ACYCLOVIR 500 MG/10ML VIAL 1,000 MG in NS(*) 0.9% 250 ML BAG 250 ML IVPB SCH (23:40)
[2018-11-28 01:15] VITALS: BP 106/79
[2018-11-28] MEDS ORDERED: DEXAMETHASONE INJ 100 MG/10 ML IVP ONE (01:15)
[2018-11-28] MEDS ORDERED: INFLUENZA VIRUS VAC 0.5ML SYR IM ONLY ONE (01:15)
[2018-11-28] MEDS ORDERED: VANCOMYCIN(*) 1 GM VIAL 2 GM in NS(*) 0.9% 500 ML BAG 500 ML IVPB ONE (01:15)
[2018-11-28] MEDS ORDERED: ONDANSETRON 4 MG/2 ML VIAL IVP PRN (01:15)
[2018-11-28] MEDS ORDERED: cefTRIAXone 1 GM VIAL IVP ONE (01:15)
[2018-11-28] MEDS ORDERED: IBUPROFEN 600 MG TAB PO PRN (01:15)
[2018-11-28] MEDS ORDERED: FLUSH 10 ML SYR IVP PRN (01:15)
--- NOTE | 2018-11-28 01:40 | History & Physical ---
History of Present Illness Chief Complaint Back pain, fever History of Present Illness 28F presented with back pain and photophobia. Denies PMHx. Sudden onset fever and chills reportedly to 104F, took something to bring down fever. Noted back stiffness and difficulty standing up straight, light bothering eyes, feeling of fullness at base of neck/head. Appears uncomfortable but resting in bed with knees bent up and raised head to her hand to scratch head during examination. CSF shows 10 WBC, labs show leukocytosis, CRP is mildly elevated at 3. Denies nausea, vomiting, urinary symptoms. Had episode one year ago with similar symptoms, negative serology and Cx from that stay. History Unable To Obtain Past Medical: denies Home Meds Discontinued Reported Medications Norgestimate-Ethinyl Estradiol (SPRINTEC) 1 Each Tablet, 1 EACH PO 28 days 12/10/17 Discontinued Scripts Acyclovir (ACYCLOVIR) 800 Mg Tablet, 800 MG PO 5XD, #35 TAB Prov:EVER FRANCIS DO 12/14/17 Allergies: Coded Allergies: No Known Drug Allergies (Verified , 11/27/18) Patient History: FH: HTN (hypertension) FATHER FH: diabetes mellitus MOTHER FH: hypothyroidism MOTHER Hx Smoking: No Caffeine Intake: Soda Caffeine/Cups Per Day: 2 Hx Alcohol Use: Yes Hx Substance Use Disorder: No Review of Systems All Systems Reviewed/Normal: Yes, Except as Noted Constitutional: Fever Neurological: No Confusion, No Weakness, No Slurred Speech Eyes: Photophobia Other back pain Exam Vital Signs Vital Signs Date Time Temp Pulse Resp B/P (MAP) Pulse Ox O2 Delivery O2 Flow Rate FiO2 11/28/18 01:22 93 11/28/18 01:15 98.7 82 16 106/79 (88) Room Air General Appearance: Alert, Awake, No Acute Distress, Afebrile Neuro: No Gross deficits Neck: Other (supple, questionable meningeal signs) Cardiovascular: Normal Rhythm & Peripheral Pulses Respiratory: No Respiratory Distress GI: Abd Soft and Non-Tender Extremities: Soft and Non Tender, Warm, Pulses, Perfused Medical Decision Making Data Points Result Diagram: 11/27/18194111/27/181941 Assessment and Plan Problems: (1) Meningitis Status: Acute Assessment & Plan: CSF demonstrates possible aseptic meningitis picture with 10 wbc, symptoms are not classic, examination is atypical for a bacterial meningitis. CSF culture pending, HSV pending. Will empirically cover with ceftriaxone, vancomycin, acyclovir and add dexamethasone. If culture negative in 24-48 hours based on clinical picture consider stopping antibiotics. (2) Leukocytosis Assessment & Plan: Neutrophil predominant, CRP mildly elevated. Unclear austen ology of inflammation, covering bacterial meningitis though very low index of suspicion. Central Venous Access Medical Necessity for Access: IV Access, Medication Administration Venous Thromboembolism Antithrombotics Is Pt On Any Antithrombotics?: Yes Exam Sepsis Risk: Possible Sepsis Risk RAMEY ALMITA BROOKE DO Nov 28, 2018 01:40
[2018-11-28] MEDS ORDERED: NS(*) 0.9% 500 ML BAG 500 ML ONE (01:49)
[2018-11-28] MEDS ORDERED: DEXAMETHASONE SOD 20MG/5 ML VL ONE (01:57)
[2018-11-28] MEDS ORDERED: VANCOMYCIN(*) 1 GM VIAL 1 GM in NS(*) 0.9% 250 ML BAG 250 ML IVPB SCH (02:00)
[2018-11-28] MEDS ORDERED: cefTRIAXone 2 GM VIAL IVP SCH (02:00)
[2018-11-28 06:09] LABS: PLATELET COUNT, AUTOMATED 203 K/uL (150-450)
[2018-11-28 06:51] VITALS: BP 108/69
[2018-11-28] MEDS ORDERED: SUMAtriptan SUCC 25MG TAB PO ONE (07:30)
--- NOTE | 2018-11-28 08:19 | Hospitalist Progress Note ---
Subjective Progress Notes Subjective This patient was admitted for possible meningitis. She continues to complain of headache. Patient Complains of: Cardiovascular: No: Chest Pain Respiratory: No: Shortness of Breath Physical Exam Vital Signs Date Time Temp Pulse Resp B/P (MAP) Pulse Ox O2 Delivery O2 Flow Rate FiO2 11/28/18 06:51 98.7 74 14 108/69 (82) 92 Room Air Intake and Output 11/28/18 07:00 Intake Total 1773 ml Balance 1773 ml Intake IV Total 1773 ml # Voids 1 Neuro: No Gross deficits Eyes: PERRLA Cardiovascular: Regular Rate and Rhythm Respiratory: Clear to Auscultation Result Diagram: 11/28/18 0525 11/27/181941 Assessment and Plan Problems: (1) Meningitis Status: Acute Assessment & Plan: Her CSF analysis reported elevated WBC's, but there were none seen on her gram stain and no organisms were identified either. Her cultures have been negative to date. She had a similar episode last November and all testing from that visit were negative. She was on empiric treatment with ceftriaxone, vancomycin, and dexamethasone. Those have all been stopped. She remains on empiric acyclovir. (2) Headache Assessment & Plan: She continues to complain of headache and photophobia. We will try a dose of Imitrex. Central Venous Access Medical Necessity for Access: IV Access, Medication Administration Exam Sepsis Risk: No Definite Risk EVER FRANCIS DO Nov 28, 2018 08:19
[2018-11-28] MEDS: NS 0.9% IVPB SCH ×2 (08:55→17:50)
[2018-11-28] MEDS: ACYCLOVIR IVPB SCH ×2 (08:55→17:50)
[2018-11-28] MEDS ORDERED: ACYCLOVIR IVPB SCH (09:00)
[2018-11-28] MEDS ORDERED: ENOXAPARIN 40 MG/0.4ML SYR SC SCH (09:00)
[2018-11-28] MEDS ORDERED: NS 0.9% IVPB SCH (09:00)
[2018-11-28] MEDS ORDERED: DEXAMETHASONE SOD PHOS 10MG/ML IVP SCH (12:00)
[2018-11-28] MEDS ORDERED: SUMA50TA35 PO (17:38)
--- NOTE | 2018-11-28 17:42 | Hospitalist Depart ---
Discharge Summary Reason for Hosp/Final Diag: (1) Migraine Hospital Course & Plan: She presented with a headache and photophobia. She also reported a subjective fever, but has been afebrile since admission. She was given a trial of Imitrex and her symptoms completely resolved. She will discharge with a prescription for Imitrex to be used as needed for recurrent headache. (2) Meningitis Status: Acute Hospital Course & Plan: Her CSF analysis reported elevated WBC's, but there were none seen on her gram stain and no organisms were identified either. Her cultures have been negative to date. She had a similar episode last November and all testing from that visit were negative. She was on empiric treatment with ceftriaxone, vancomycin, acyclovir and dexamethasone. Those have all been stopped. Her symptoms completely resolved after a dose of Imitrex, thus meningitis is excluded. Departure Latest Vital Signs Vital Signs 11/28/18 11/28/18 11/28/18 06:51 11:49 14:13 Temp 98.4 Pulse 65 Resp 14 B/P (MAP) 108/69 (82) Pulse Ox 94 O2 Delivery Room Air Weight (Pounds): 148 Result Diagram: 11/28/1825 11/27/181941 Condition: Improved Discharge: Home, Self Care Discharge Instructions Home Meds Active Scripts Sumatriptan Succinate (SUMATRIPTAN SUCCINATE) 50 Mg Tablet, 50 MG PO ONCE PRN for HEADACHE, #5 TAB Prov:EVER FRANCIS DO 11/28/18 Discontinued Reported Medications Norgestimate-Ethinyl Estradiol (SPRINTEC) 1 Each Tablet, 1 EACH PO 28 days 12/10/17 Discontinued Scripts Acyclovir (ACYCLOVIR) 800 Mg Tablet, 800 MG PO 5XD, #35 TAB Prov:EVER FRANCIS DO 12/14/17 Diet: Regular Activity: As Tolerated Venous Thromboembolism Antithrombotics Is Pt On Any Antithrombotics?: Yes EVER FRANCIS DO Nov 28, 2018 17:42
== END 2018-11-28 17:38 | disposition home or self-care (01) ==
LOC: ER 19:40 → INTOOBSV 11-28 00:20 → MED 11-28 00:20
PROVIDERS: ADMIT Internal Medicine; ATTEND Internal Medicine
DX: G03.9 Meningitis, unspecified (principal); D72.829 Elevated white blood cell count, unspecified
CPT/HCPCS: 36415; 62270; 70450; 71046; 81001; 82945; 83605; 84157; 84703; 85025; 85651; 86140; 87040; 87070; 87205; 87502; 87529; 89050; 96361; 96365; 96374; 96375; 99284; G0378; J0133; J0696; J1100; J1170; J2405; J3010; J3370; J7030; J7040; J7050; 82040; 82247; 82310; 82374; 82435; 82565; 82947; 84075; 84132; 84155; 84295; 84450; 84460; 84520